=== PATIENT | male | born 1980 | race Two or more races ===

== ENCOUNTER 2023-09-14 09:09 | Emergency (ER) | payer SELFPAY ==
[~2023-09-14] VITALS: Ht 172.7 cm; Wt 70.8 kg
[2023-09-14] MEDS ORDERED: NEOMY/BACITRAC/POLYMI OINT 28.35 GM TUBE ONE (09:27)
[2023-09-14] MEDS ORDERED: NEOMY/BACITRA/POLYMYXIN B OINT UD PACKET TP ONE (09:30)
[2023-09-14] MEDS ORDERED: TDAP DIPH,PERTUSS,TET VAC/PF 0.5 ML DISP.SYRIN IM ONE ×3 (09:30→09:40)
[2023-09-14] MEDS ORDERED: AMOX-430 PO (09:35)
[2023-09-14 09:44] VITALS: BP 117/74; O2SAT 98
== END 2023-09-14 09:44 | disposition home or self-care (01) ==
LOC: EDBD 09:09 → ER 09:09
DX: S51.852A Open bite of left forearm, initial encounter (principal); S61.451A Open bite of right hand, initial encounter; W54.0XXA Bitten by dog, initial encounter; Y93.89 Activity, other specified; Y92.89 Other specified places as the place of occurrence of the external cause; Y99.8 Other external cause status
CPT/HCPCS: 90715; A4606; A4663